=== PATIENT | female | born 1985 | race Caucasian/White ===

== ENCOUNTER 2016-07-07 06:31 | Inpatient (IN) | payer BC ==
[2016-07-07] MEDS ORDERED: Nalbuphine 10 MG/1 ML Vial IVPUSH PRN (06:48)
[2016-07-07] MEDS ORDERED: Sodium Chloride 0.9% 10 ML Syringe FLUSH PRN (06:48)
[2016-07-07] MEDS ORDERED: Misoprostol 200 MCG Tab PO PRN (06:48)
[2016-07-07] MEDS ORDERED: Butorphanol 1 MG/ML SDV IVPUSH PRN (06:48)
[2016-07-07] MEDS ORDERED: Water For Irrigation,Sterile 1,000 ML Container IRR PRN (06:48)
[2016-07-07] MEDS ORDERED: Carboprost Tromethamine 250 MCG/1 ML Amp IM PRN (06:48)
[2016-07-07] MEDS ORDERED: Lidocaine 1% 50 ML MDV INJECT PRN (06:48)
[2016-07-07] MEDS ORDERED: Methylergonovine 0.2 MG/1 ML Amp IM PRN (06:48)
[2016-07-07] MEDS ORDERED: Sodium Chloride 0.9% 2.5 ML Syringe FLUSH PRN (06:48)
[2016-07-07] MEDS ORDERED: Lidocaine 1% 50 ML MDV ONE (06:52)
[2016-07-07] MEDS ORDERED: Lactated Ringers 1,000 ML IV SCH (07:00)
[2016-07-07] MEDS ORDERED: Oxytocin/Lactated Ringers 30 UNIT/500 ML BAG IV SCH (07:00)
[2016-07-07] MEDS ORDERED: Acetaminophen 500 MG Tab PO PRN (08:31)
[2016-07-07] MEDS ORDERED: Docusate Sodium 100 MG Cap PO PRN (08:31)
[2016-07-07] MEDS ORDERED: oxyCODONE 5 MG Tab PO PRN (08:31)
[2016-07-07] MEDS ORDERED: Bisacodyl 10 MG Supp RECTAL PRN (08:31)
[2016-07-07] MEDS ORDERED: Lanolin 100% Cream 7 GM Tube TOP PRN (08:31)
[2016-07-07] MEDS ORDERED: Witch Hazel Medicated Pads 40/Jar TOP PRN (08:31)
[2016-07-07] MEDS ORDERED: Benzocaine/Menthol 20%-0.5% Spray 78 GM Cannister TOP PRN (08:31)
[2016-07-07] MEDS: Ibuprofen 800 MG Tab PO PRN ×2 (11:33→21:16)
--- NOTE | 2016-07-08 08:32 | PCM.PNPP ---
- General Info Date of Service: 07/08/16 Functional Status: Reports: pain controlled, tolerating diet, ambulating, urinating - Review of Systems General: Reports: No Symptoms HEENT: Reports: no symptoms Pulmonary: Reports: no symptoms Cardiovascular: Reports: No Symptoms Gastrointestinal: Reports: No symptoms, [place] Genitourinary: Reports: no symptoms Musculoskeletal: Reports: no symptoms Skin: Reports: no symptoms Neurological: Reports: No Symptoms Psychiatric: Reports: no symptoms - General Info Date of Service: 07/08/16 - Patient Data Vital Signs - most recent: Last Vital Signs Temp 36.6 C 07/08/16 04:00 Pulse 75 07/08/16 04:00 Resp 14 07/08/16 04:00 BP 99/60 07/08/16 04:00 Pulse Ox 97 07/08/16 04:00 Weight - most recent: 70.307 kg Lab Results - last 24 hrs: Laboratory Results - last 24 hr 07/07/16 07/07/16 07/07/16 Range/Units 08:26 08:26 08:26 WBC 16.69 H (4.0-11.0) K/uL RBC 4.23 L (4.30-5.90) M/uL Hgb 12.7 (12.0-16.0) g/dL Hct 37.7 (36.0-46.0) % MCV 89.1 (80.0-98.0) fL MCH 30.0 (27.0-32.0) pg MCHC 33.7 (31.0-37.0) g/dL RDW Std Deviation 45.0 (28.0-62.0) fl RDW Coeff of Vilma 14 (11.0-15.0) % Plt Count 155 (150-400) K/uL MPV 10.60 (7.40-12.00) fL Nucleated RBC % 0.1 /100WBC Nucleated RBCs # 0 K/uL Blood Type O NEGATIVE Antibody Screen NEGATIVE Rhogam Indicated NO, MOM+BABY RH NEG 07/08/16 Range/Units 06:00 WBC (4.0-11.0) K/uL RBC (4.30-5.90) M/uL Hgb 11.7 L (12.0-16.0) g/dL Hct 35.0 L (36.0-46.0) % MCV (80.0-98.0) fL MCH (27.0-32.0) pg MCHC (31.0-37.0) g/dL RDW Std Deviation (28.0-62.0) fl RDW Coeff of Vilma (11.0-15.0) % Plt Count (150-400) K/uL MPV (7.40-12.00) fL Nucleated RBC % /100WBC Nucleated RBCs # K/uL Blood Type Antibody Screen Rhogam Indicated Med Orders - Current: Current Medications Acetaminophen (Tylenol Extra Strength) 500 mg PO Q4H PRN PRN Reason: Pain Last Admin: 07/07/16 13:55 Dose: 500 mg Benzocaine/Menthol (Dermoplast Pain Relief 20%-0.5% [place]) 78 gm TOP ASDIRECTED PRN PRN Reason: Perineal Comfort Measure Bisacodyl (Dulcolax) 10 mg RECTAL .ONCE PRN PRN Reason: Constipation Butorphanol Tartrate (Stadol) 1 mg IVPUSH Q1H PRN PRN Reason: Pain Carboprost Tromethamine (Hemabate Ds) 250 mcg IM ASDIRECTED PRN PRN Reason: Post Hemorrhage Docusate Sodium (Colace) 100 mg PO BID PRN PRN Reason: Constipation Emollient Ointment (Lansinoh Hpa) 0 gm TOP ASDIRECTED PRN PRN Reason: Sore Nipples Lactated Ringer's (Ringers, Lactated) 1,000 mls @ 150 mls/hr IV ASDIRECTED MARK Ibuprofen (Motrin) 800 mg PO Q6H PRN PRN Reason: Pain Last Admin: 07/07/16 21:16 Dose: 800 mg Lidocaine HCl (Xylocaine 1%) 50 ml INJECT .ONCE PRN PRN Reason: Laceration repair Methylergonovine Maleate (Methergine) 0.2 mg IM ASDIRECTED PRN PRN Reason: Post Hemorrhage Misoprostol (Cytotec) 200 mcg PO .ONCE PRN PRN Reason: Post Hemorrhage Oxycodone HCl (Oxycodone) 5 mg PO Q2H PRN PRN Reason: Pain Sodium Chloride (Saline Flush) 10 ml FLUSH ASDIRECTED PRN PRN Reason: Keep Vein Open Sodium Chloride (Saline Flush) 2.5 ml FLUSH ASDIRECTED PRN PRN Reason: Keep Vein Open Sterile Water (Sterile Water For Irrigation) 1,000 ml IRR ASDIRECTED PRN PRN Reason: delivery Last Admin: 07/07/16 07:33 Dose: 1,000 ml Witch Stephanie (Tucks) 1 pad TOP ASDIRECTED PRN PRN Reason: comfort care Discontinued Medications Oxytocin/Lactated Ringer's (Pitocin In Lr 30 Units/500 Ml) 30 unit in 500 mls @ 2 mls/hr IV TITRATE MARK; 2 MUNITS/MIN PRN Reason: Protocol Stop: 07/08/16 06:59 Last Admin: 07/07/16 07:33 Dose: 500 munits/min, 500 mls/hr Lidocaine HCl (Xylocaine 1%) Confirm Administered Dose 50 ml .ROUTE .STK-MED ONE Stop: 07/07/16 06:53 Last Admin: 07/07/16 07:32 Dose: 50 ml Nalbuphine HCl (Nubain) 10 mg IVPUSH Q1H PRN PRN Reason: Pain (severe 7-10) Stop: 07/07/16 08:49 - Interaction Disposition, : in Room with Family Interaction: Holding Infant Feeding: Attempted ; Nursed Fair/Poor Support Person: - Exam General: alert, oriented Neck: supple Lungs: Clear to auscultation, Normal respiratory effort Cardiovascular: Regular Rate, Regular Rhythm Abdomen: bowel sounds present, soft, no tenderness Extremities: no calf tenderness Skin: warm, dry, intact Neurological: no new focal deficit Psy/Mental Status: alert, normal affect, normal mood - Problem List & Annotations (1) Vaginal delivery SNOMED Code(s): 063240909 Code(s): O80 - ENCOUNTER FOR FULL-TERM UNCOMPLICATED DELIVERY Status: Acute Current Visit: Yes - Problem List Review Problem List Initiated/Reviewed/Updated: Yes - My Orders Last 24 Hours: My Active Orders 07/07/16 08:31 Patient Status [ADT] Routine May Shower [RC] ASDIRECTED Up ad Shyanne [RC] ASDIRECTED Vital Signs [RC] PER UNIT ROUTINE Acetaminophen [Tylenol Extra Strength] 500 mg PO Q4H PRN Benzocaine/Menthol [Dermoplast Pain Relief 20%-0.5% [place]] 78 gm TOP ASDIRECTED PRN Bisacodyl [Dulcolax] 10 mg RECTAL .ONCE PRN Docusate Sodium [Colace] 100 mg PO BID PRN Ibuprofen [Motrin] 800 mg PO Q6H PRN Lanolin [Lansinoh HPA] See Dose Instructions TOP ASDIRECTED PRN Witch Stephanie [Tucks] 1 pad TOP ASDIRECTED PRN oxyCODONE 5 mg PO Q2H PRN Assess Lochia [WOMSER] Per Unit Routine Assess Uterine Involution [WOMSER] Per Unit Routine Breast Pump [WOMSER] Per Unit Routine Peripheral IV Discontinue [OM.PC] Routine 07/07/16 08:32 Ice Therapy [OM.PC] Per Unit Routine Perineal Care [OM.PC] Per Unit Routine Sitz Bath [OM.PC] Per Unit Routine 07/08/16 09:30 Ready for Discharge [RC] PER UNIT ROUTINE - Assessment Assessment:: PPD#1 S/p SAVD Doing well OOB voiding and ambulating without difficulty - Plan Plan:: Pelvic rest for 6wks Call for increased heavy bleeding of > 1pad per hr Call for temp. >100.4 x 2 Thromboembolic precautions given blues/depression precautions given
[2016-07-08 10:06] VITALS: BP 111/71
--- NOTE | 2016-07-09 06:08 | OR ---
SURGEON: Mayuri Lozoya DATE OF PROCEDURE: 07/07/2016 PREDELIVERY HISTORY: This is a 31-year-old G2, P1, presented to Labor and Delivery with complaints of painful uterine contractions. On initial exam, the patient was noted to be completely dilated and 0 station with a bulging bag of membranes. heart tracing was significant for category 1 status. The patient was lizzette every 2 to 3 minutes on her own. has been uncomplicated for patient. After receiving an IV lock, the patient did undergo amniotomy for copious clear fluid. The patient started maternal expulsive efforts shortly thereafter. PREOPERATIVE DIAGNOSES: 1. Intrauterine at 39 weeks and 1 day. 2. GBS negative. 3. Active labor. POSTOPERATIVE DIAGNOSES: 1. Intrauterine at 39 weeks and 1 day. 2. Delivered status. 3. Midline second-degree perineal laceration. PROCEDURE PERFORMED: 1. Spontaneous-assisted vaginal delivery. 2. Second-degree midline perineal laceration. ATTENDING PHYSICIAN: Dr. Mayuri Lozoya ANESTHESIA: Local. ESTIMATED BLOOD LOSS: 300 mL. FINDINGS: Viable female in vertex presentation with score of 9 and 9 at 1 and 5 minutes respectively and weight of 3470 g. Normal intact placenta with 3- vessel cord. Midline second-degree perineal laceration. SPECIMEN REMOVED: Placenta. CONDITION: Postoperatively, the patient and tolerated the procedure well. COMPLICATIONS: None known. DESCRIPTION OF PROCEDURE: This female, under no anesthesia, delivered a viable female , with score of 9 and 9 at 1 and 5 minutes respectively. Weight of 3470 g. Delivery was via spontaneous assisted vaginal delivery with in vertex presentation. Upon delivery of vertex, the neck was checked. There was no nuchal to be reduced, and with gentle downward traction, the anterior shoulder was delivered, followed by the body. The was bulb suctioned at delivery. At maternal request, the infant was placed directly on mom's abdomen and infant was very vigorous at the time of delivery and suctioned and at that time was placed on mom's abdomen. Once there were signs of placental separation, maternal fundal massage was completed and traction on the umbilical cord and a normal intact placenta with 3-vessel cord was delivered. Cord was doubly clamped and cut and was repositioned on mom's abdomen. Afterwards, the patient's vagina, perineum, and rectum were explored and patient had a midline second-degree perineal laceration secondary to the gush of blood and pass of large clots. IV bolus of Pitocin was given after it was discussed with the patient as the patient wanted minimal medications and intervention. The patient did allow IV Pitocin to be started. Afterwards 1% lidocaine plain was used to infiltrate the vaginal and perineal tissues for repair. The patient did have a history of a midline third-degree perineal laceration, but this was only a second-degree. It was discussed with patient that the bulbocavernosus muscles and the perineum would be reinforced and repaired as almost of a 3rd degree laceration secondary to re-traumatizing the laceration was not as intact. A clean examining glove was used to do a digital rectal exam, and there was no noted buttonholing and the actual rectal sphincter could be palpated though somewhat slightly attenuated. After infiltrating the perineal tissues with local anesthetic, a 3-0 Vicryl suture was used to reapproximate the vagina, just past the hymenal ring. Once past the hymenal ring, the suture was switched over to a 2-0 Polysorb suture to reapproximate the bulbocavernosus muscles. After reapproximation of the bulbar cavernosus muscles, the remainder of the laceration was repaired in the usual three layer fashion. Afterwards, the lower uterine segment vagina was cleared of all clots and debris. The patient was cleansed, pads were changed and the bed was returned to functioning status. The patient and tolerated the procedure well. Sponge, lap, needle, and instrument counts were correct. BRANDON / KYLIE /[id number] PREETI
== END 2016-07-08 11:00 | disposition home or self-care (01) | DRG 560 ==
LOC: MW.OBCHECK 06:31 → MW.OB 06:34 → MW.OBCHECK 06:49 → MW.OB 06:49 → OBSVTOIN 07:07
PROVIDERS: ADMIT Obstetrics & Gynecology; ATTEND Obstetrics & Gynecology
PROC: 10E0XZZ Delivery of Products of Conception, External Approach (ICD-10-PCS; principal; 2016-07-07)
PROC: 0KQM0ZZ Repair Perineum Muscle, Open Approach (ICD-10-PCS; 2016-07-07)
PROC: 10907ZC Drainage of Amniotic Fluid, Therapeutic from Products of Conception, Via Natural or Artificial Opening (ICD-10-PCS; 2016-07-07)
DX: O70.1 Second degree perineal laceration during delivery (principal); Z3A.39 39 weeks gestation of pregnancy; Z37.0 Single live birth
CPT/HCPCS: 36415; 59025; 85014; 85018; 85027; 86850; 86900; 86901; A9270-GY

== ENCOUNTER 2019-07-19 21:14 | Inpatient (IN) | payer SELFPAY ==
[2019-07-19] MEDS ORDERED: Nalbuphine 10 MG/1 ML Vial IVPUSH PRN (22:20)
[2019-07-19] MEDS ORDERED: Butorphanol 1 MG/ML SDV IVPUSH PRN (22:20)
[2019-07-19] MEDS ORDERED: Sodium Chloride 0.9% 10 ML SDV IV PRN (22:20)
[2019-07-19] MEDS ORDERED: Sodium Chloride 0.9% 2.5 ML Syringe FLUSH PRN (22:20)
[2019-07-19] MEDS ORDERED: Tranexamic Acid 1,000 MG in Sodium Chloride 0.9% 100 ML IV PRN (22:20)
[2019-07-19] MEDS ORDERED: Water For Irrigation,Sterile 1,000 ML Container IRR PRN (22:20)
[2019-07-19] MEDS ORDERED: Methylergonovine 0.2 MG/1 ML Amp IM PRN (22:20)
[2019-07-19] MEDS ORDERED: Lidocaine 1% 50 ML MDV INJECT PRN (22:20)
[2019-07-19] MEDS ORDERED: Carboprost Tromethamine 250 MCG/1 ML Amp IM PRN (22:20)
[2019-07-19] MEDS ORDERED: Misoprostol 200 MCG Tab PO PRN (22:20)
[2019-07-19] MEDS ORDERED: Sodium Chloride 0.9% 10 ML Syringe FLUSH PRN (22:20)
[2019-07-19] MEDS ORDERED: Lactated Ringers 1,000 ML IV SCH (22:30)
[2019-07-19] MEDS ORDERED: Oxytocin/0.9 % Sodium Chloride 30 UNIT/500 ML BAG IV SCH (22:30)
[2019-07-19] MEDS ORDERED: Ibuprofen 800 MG Tab PO PRN (23:53)
[2019-07-19] MEDS ORDERED: Ibuprofen 400 MG Tab PO PRN (23:53)
[2019-07-19] MEDS ORDERED: Benzocaine/Menthol 20%-0.5% Spray 78 GM Cannister TOP PRN (23:53)
[2019-07-19] MEDS ORDERED: Docusate Sodium 100 MG Cap PO PRN (23:53)
[2019-07-19] MEDS ORDERED: oxyCODONE 5 MG Tab PO PRN (23:53)
[2019-07-19] MEDS ORDERED: Witch Hazel Medicated Pads 40/Jar TOP PRN (23:53)
[2019-07-19] MEDS ORDERED: Lanolin 100% Cream 7 GM Tube TOP PRN (23:53)
[2019-07-19] MEDS ORDERED: Bisacodyl 10 MG Supp RECTAL PRN (23:53)
[2019-07-19] MEDS ORDERED: Acetaminophen 500 MG Tab PO PRN ×2 (23:53)
--- NOTE | 2019-07-19 23:53 | PCM.LDHP ---
L&D History of Present Illness - General Date of Service: 07/19/19 Admit Problem/Dx: Patient Status Order with Admit Dx/Problem 07/19/19 21:06 Patient Status [ADT] Routine 07/19/19 21:50 Patient Status [ADT] Routine Admission Diagnosis/Problem Admission Diagnosis/Problem Source of Information: Patient History Limitations: Reports: No Limitations - History of Present Illness Improves with: Reports: None Worsens with: Reports: None Associated Symptoms: Reports: N - Related Data Allergies/Adverse Reactions: Allergies Allergy/AdvReac Type Severity Reaction Status Date / Time No Known Allergies Allergy Verified 06/10/14 22:33 Home Medications: Home Meds oxyCODONE 5 mg PO Q4H PRN #20 tablet 06/11/14 [Rx] Past Medical History - Past Health History Medical/Surgical History: Denies Medical/Surgical History Social & Family History - Family History Family Medical History: Noncontributory - Caffeine Use Caffeine Use: Reports: None H&P Review of Systems - Review of Systems: Review Of Systems: See Below General: Reports: No Symptoms HEENT: Reports: No Symptoms Pulmonary: Reports: No Symptoms Cardiovascular: Reports: No Symptoms Gastrointestinal: Reports: No Symptoms Genitourinary: Reports: No Symptoms Musculoskeletal: Reports: No Symptoms Skin: Reports: No Symptoms Psychiatric: Reports: No Symptoms Neurological: Reports: No Symptoms Hematologic/Lymphatic: Reports: No Symptoms Immunologic: Reports: No Symptoms L&D Exam - Exam Exam: See Below - OB Specific Contraction Intensity: Moderate Movement: Active Heart Tones: Present Presentation: Vertex - Motta Score Motta Score Cervix Position: Anterior Motta Score Consistency: Soft Motta Score Effacement: >80% Motta Score Dilation: > 5 cm Motta Score 's Station: -2 Motta Score Total: 11 - Exam General: Alert, Oriented HEENT: PERRLA, Conjunctiva Clear, EACs Clear, EOMI, Hearing Intact, Mucosa Moist & [place], Nares Patent, Normal Nasal Septum, Posterior Pharynx Clear, TMs Clear Neck: Supple, Trachea Midline Lungs: Clear to Auscultation, Normal Respiratory Effort Cardiovascular: Regular Rate, Regular Rhythm GI/Abdominal Exam: Normal Bowel Sounds, Soft, Non-Tender, No Organomegaly, No Distention, No Abnormal Bruit, No Mass, Pelvis Stable Rectal Exam: Normal Exam, Normal Rectal Tone Genitourinary: Normal external exam, Normal bimanual exam, Normal speculum exam Back Exam: Normal Inspection, Full Range of Motion Extremities: Normal Inspection, Normal Range of Motion, Non-Tender, No Pedal Edema, Normal Capillary Refill Skin: Warm, Dry, Intact Neurological: Cranial Nerves Intact, Reflexes Equal Bilateral Psychiatric: Alert, Normal Affect, Normal Mood - Patient Data Lab Results Last 24 hrs: Laboratory Results - last 24 hr 07/19/19 07/19/19 07/19/19 Range/Units 21:10 22:12 22:12 WBC 15.61 H (4.0-11.0) K/uL RBC 4.10 L (4.30-5.90) M/uL Hgb 12.0 (12.0-16.0) g/dL Hct 35.3 L (36.0-46.0) % MCV 86.1 (80.0-98.0) fL MCH 29.3 (27.0-32.0) pg MCHC 34.0 (31.0-37.0) g/dL RDW Std Deviation 43.6 (28.0-62.0) fl RDW Coeff of Vilma 14 (11.0-15.0) % Plt Count 209 (150-400) K/uL MPV 10.60 (7.40-12.00) fL Nucleated RBC % 0.0 /100WBC Nucleated RBCs # 0 K/uL Membrane Rupture POSITIVE Blood Type O NEGATIVE Antibody Screen NEGATIVE Result Diagrams: 07/19/19 22:12 Problem List Initiated/Reviewed/Updated: Yes Orders Last 24hrs: Active Orders 24 hr Category Date Time Status Patient Status [ADT] Routine ADT 07/19/19 21:50 Active Heart Tones [RC] CONTINUOUS Care 07/19/19 22:20 Active Non Stress Test [RC] PER UNIT ROUTINE Care 07/19/19 21:16 Active May Shower [RC] ASDIRECTED Care 07/19/19 22:20 Active Notify Provider [RC] PRN Care 07/19/19 22:20 Active Peripheral IV Care [RC] PRN Care 07/19/19 22:20 Active Up ad Shyanne [RC] ASDIRECTED Care 07/19/19 21:16 Active Vaginal Exam [RC] Click to Edit Care 07/19/19 21:16 Active Vital Signs [RC] PER UNIT ROUTINE Care 07/19/19 21:16 Active RPR (SYPHILIS SERO) W/ RFLX [REF] Routine Lab 07/19/19 22:12 Received Butorphanol [Stadol] Med 07/19/19 22:20 Active 1 mg IVPUSH Q1H PRN Carboprost Tromethamine [Hemabate DS] Med 07/19/19 22:20 Active 250 mcg IM ASDIRECTED PRN Lactated Ringers [Ringers, Lactated] 1,000 ml Med 07/19/19 22:30 Active IV ASDIRECTED Lidocaine 1% [Xylocaine 1%] Med 07/19/19 22:20 Active 50 ml INJECT ONETIME PRN Methylergonovine [Methergine] Med 07/19/19 22:20 Active 0.2 mg IM ASDIRECTED PRN Nalbuphine [Nubain] Med 07/19/19 22:20 Active 10 mg IVPUSH Q1H PRN Oxytocin/0.9 % Sodium Chloride [Oxytocin 30 Unit/500 ML Med 07/19/19 22:30 Active -NS] 30 unit in 500 ml IV TITRATE Sodium Chloride 0.9% [Normal Saline] Med 07/19/19 22:20 Active 10 ml IV ASDIRECTED PRN Sodium Chloride 0.9% [Saline Flush] Med 07/19/19 22:20 Active 10 ml FLUSH ASDIRECTED PRN Sodium Chloride 0.9% [Saline Flush] Med 07/19/19 22:20 Active 2.5 ml FLUSH ASDIRECTED PRN Tranexamic Acid [Cyklokapron] 1,000 mg Med 07/19/19 22:20 Active Sodium Chloride 0.9% [Normal Saline] 100 ml IV ONETIME Water For Irrigation,Sterile [Sterile Water for Med 07/19/19 22:20 Active Irrigation] 1,000 ml IRR ASDIRECTED PRN miSOPROStoL [Cytotec] Med 07/19/19 22:20 Active 200 mcg PO ONETIME PRN Scalp Electrode [WOMSER] Per Unit Routine Oth 07/19/19 22:20 Ordered Peripheral IV Insertion Adult [OM.PC] Routine Oth 07/19/19 22:20 Ordered Resuscitation Status Routine Resus Stat 07/19/19 21:16 Ordered Medication Orders Butorphanol Tartrate (Stadol) 1 mg IVPUSH Q1H PRN PRN Reason: Pain Carboprost Tromethamine (Hemabate Ds) 250 mcg IM ASDIRECTED PRN PRN Reason: Post Hemorrhage Tranexamic Acid 1,000 mg/ (Sodium Chloride) 110 mls @ 660 mls/hr IV ONETIME PRN PRN Reason: Bleeding Lactated Ringer's (Ringers, Lactated) 1,000 mls @ 150 mls/hr IV ASDIRECTED MARK Oxytocin/Sodium Chloride (Oxytocin 30 Unit/500 Ml-Ns) 30 unit in 500 mls @ 999 mls/hr IV TITRATE MARK Lidocaine HCl (Xylocaine 1%) 50 ml INJECT ONETIME PRN PRN Reason: Laceration repair Last Admin: 07/19/19 23:43 Dose: 50 ml Methylergonovine Maleate (Methergine) 0.2 mg IM ASDIRECTED PRN PRN Reason: Post Hemorrhage Misoprostol (Cytotec) 200 mcg PO ONETIME PRN PRN Reason: Post Hemorrhage Nalbuphine HCl (Nubain) 10 mg IVPUSH Q1H PRN PRN Reason: Pain (severe 7-10) Sodium Chloride (Saline Flush) 10 ml FLUSH ASDIRECTED PRN PRN Reason: Keep Vein Open Sodium Chloride (Saline Flush) 2.5 ml FLUSH ASDIRECTED PRN PRN Reason: Keep Vein Open Sodium Chloride (Normal Saline) 10 ml IV ASDIRECTED PRN PRN Reason: IV Use Sterile Water (Sterile Water For Irrigation) 1,000 ml IRR ASDIRECTED PRN PRN Reason: delivery Last Admin: 07/19/19 22:49 Dose: 1,000 ml Assessment/Plan Comment:: IUP 39 wks+ in active labor.
--- NOTE | 2019-07-20 08:36 | PCM.PNPP ---
- General Info Date of Service: 07/20/19 Functional Status: Reports: Pain Controlled - Review of Systems General: Reports: No Symptoms HEENT: Reports: No Symptoms Pulmonary: Reports: No Symptoms Cardiovascular: Reports: No Symptoms Gastrointestinal: Reports: No Symptoms Genitourinary: Reports: No Symptoms Musculoskeletal: Reports: No Symptoms Skin: Reports: No Symptoms Neurological: Reports: No Symptoms Psychiatric: Reports: No Symptoms - General Info Date of Service: 07/20/19 - Patient Data Vital Signs - Most Recent: Last Vital Signs Temp 36.9 C 07/20/19 04:30 Pulse 78 07/20/19 04:30 Resp 16 07/20/19 04:30 BP 121/80 07/20/19 04:30 Pulse Ox 97 07/20/19 04:30 Weight - Most Recent: 75.296 kg Lab Results - Last 24 Hours: Laboratory Results - last 24 hr 07/19/19 07/19/19 07/19/19 Range/Units 21:10 22:12 22:12 WBC 15.61 H (4.0-11.0) K/uL RBC 4.10 L (4.30-5.90) M/uL Hgb 12.0 (12.0-16.0) g/dL Hct 35.3 L (36.0-46.0) % MCV 86.1 (80.0-98.0) fL MCH 29.3 (27.0-32.0) pg MCHC 34.0 (31.0-37.0) g/dL RDW Std Deviation 43.6 (28.0-62.0) fl RDW Coeff of Vilma 14 (11.0-15.0) % Plt Count 209 (150-400) K/uL MPV 10.60 (7.40-12.00) fL Nucleated RBC % 0.0 /100WBC Nucleated RBCs # 0 K/uL Membrane Rupture POSITIVE Blood Type O NEGATIVE Antibody Screen NEGATIVE Screen (NEGATIVE) RhIG Candidate? Rhogam Indicated 07/20/19 07/20/19 Range/Units 00:43 06:10 WBC (4.0-11.0) K/uL RBC (4.30-5.90) M/uL Hgb 11.6 L (12.0-16.0) g/dL Hct 34.4 L (36.0-46.0) % MCV (80.0-98.0) fL MCH (27.0-32.0) pg MCHC (31.0-37.0) g/dL RDW Std Deviation (28.0-62.0) fl RDW Coeff of Vilma (11.0-15.0) % Plt Count (150-400) K/uL MPV (7.40-12.00) fL Nucleated RBC % /100WBC Nucleated RBCs # K/uL Membrane Rupture Blood Type Antibody Screen Screen NEGATIVE (NEGATIVE) RhIG Candidate? YES Rhogam Indicated YES, BABY RH POS H Med Orders - Current: Current Medications Acetaminophen (Tylenol Extra Strength) 500 mg PO Q4H PRN PRN Reason: Pain Acetaminophen (Tylenol Extra Strength) 1,000 mg PO Q4H PRN PRN Reason: Pain Benzocaine/Menthol (Dermoplast Pain Relief 20%-0.5% [place]) 78 gm TOP ASDIRECTED PRN PRN Reason: Perineal Comfort Measure Bisacodyl (Dulcolax) 10 mg RECTAL ONETIME PRN PRN Reason: Constipation Carboprost Tromethamine (Hemabate Ds) 250 mcg IM ASDIRECTED PRN PRN Reason: Post Hemorrhage Docusate Sodium (Colace) 100 mg PO BID PRN PRN Reason: Constipation Emollient Ointment (Lansinoh Hpa) 0 gm TOP ASDIRECTED PRN PRN Reason: Sore Nipples Tranexamic Acid 1,000 mg/ (Sodium Chloride) 110 mls @ 660 mls/hr IV ONETIME PRN PRN Reason: Bleeding Ibuprofen (Motrin) 400 mg PO Q4H PRN PRN Reason: Pain Last Admin: 07/20/19 02:07 Dose: 400 mg Ibuprofen (Motrin) 800 mg PO Q6H PRN PRN Reason: Pain Methylergonovine Maleate (Methergine) 0.2 mg IM ASDIRECTED PRN PRN Reason: Post Hemorrhage Misoprostol (Cytotec) 200 mcg PO ONETIME PRN PRN Reason: Post Hemorrhage Oxycodone HCl (Oxycodone) 5 mg PO Q2H PRN PRN Reason: Pain Sodium Chloride (Saline Flush) 10 ml FLUSH ASDIRECTED PRN PRN Reason: Keep Vein Open Sodium Chloride (Saline Flush) 2.5 ml FLUSH ASDIRECTED PRN PRN Reason: Keep Vein Open Sodium Chloride (Normal Saline) 10 ml IV ASDIRECTED PRN PRN Reason: IV Use Witch Stephanie (Tucks) 1 pad TOP ASDIRECTED PRN PRN Reason: comfort care Last Admin: 07/20/19 01:02 Dose: 1 tub Discontinued Medications Butorphanol Tartrate (Stadol) 1 mg IVPUSH Q1H PRN PRN Reason: Pain Lactated Ringer's (Ringers, Lactated) 1,000 mls @ 150 mls/hr IV ASDIRECTED MARK Oxytocin/Sodium Chloride (Oxytocin 30 Unit/500 Ml-Ns) 30 unit in 500 mls @ 999 mls/hr IV TITRATE MARK Lidocaine HCl (Xylocaine 1%) 50 ml INJECT ONETIME PRN PRN Reason: Laceration repair Last Admin: 07/19/19 23:43 Dose: 50 ml Nalbuphine HCl (Nubain) 10 mg IVPUSH Q1H PRN PRN Reason: Pain (severe 7-10) Sterile Water (Sterile Water For Irrigation) 1,000 ml IRR ASDIRECTED PRN PRN Reason: delivery Last Admin: 07/19/19 22:49 Dose: 1,000 ml - Interaction Infant Disposition, : in Room with Family Infant Interaction: Holding Infant Feeding: Attempted ; Nursed Fair/Poor Support Person: - Recovery Exam Fundal Tone: Firm Fundal Level: 1 Fingerbreadths Below Umbilicus Fundal Placement: Midline Lochia Amount: Scant, Small Lochia Color: Rubra/Red Perineum Description: Other (see below) Other Perinuem Description: 2nd degree laceration. Episiotomy/Laceration: Approximated - Exam General: Alert, Oriented HEENT: Pupils Equal Neck: Supple Lungs: Clear to Auscultation, Normal Respiratory Effort Cardiovascular: Regular Rate, Regular Rhythm GI/Abdominal Exam: Normal Bowel Sounds, Soft, Non-Tender, No Organomegaly, No Distention, No Abnormal Bruit, No Mass, Pelvis Stable Extremities: Normal Inspection, Normal Range of Motion, Non-Tender, No Pedal Edema, Normal Capillary Refill Skin: Warm, Dry, Intact Wound/Incisions: Healing Well Neurological: No New Focal Deficit Psy/Mental Status: Alert, Normal Affect, Normal Mood - Problem List Review Problem List Initiated/Reviewed/Updated: Yes - My Orders Last 24 Hours: My Active Orders 07/19/19 21:16 Resuscitation Status Routine 07/19/19 22:12 RPR (SYPHILIS SERO) W/ RFLX [REF] Routine 07/19/19 22:20 Peripheral IV Care [RC] PRN Carboprost Tromethamine [Hemabate DS] 250 mcg IM ASDIRECTED PRN Methylergonovine [Methergine] 0.2 mg IM ASDIRECTED PRN Sodium Chloride 0.9% [Normal Saline] 10 ml IV ASDIRECTED PRN Sodium Chloride 0.9% [Saline Flush] 10 ml FLUSH ASDIRECTED PRN Sodium Chloride 0.9% [Saline Flush] 2.5 ml FLUSH ASDIRECTED PRN Tranexamic Acid [Cyklokapron] 1,000 mg Sodium Chloride 0.9% [Normal Saline] 100 ml IV ONETIME miSOPROStoL [Cytotec] 200 mcg PO ONETIME PRN Peripheral IV Insertion Adult [OM.PC] Routine 07/19/19 23:53 Patient Status [ADT] Routine May Shower [RC] ASDIRECTED Up ad Shyanne [RC] ASDIRECTED Vital Signs [RC] PER UNIT ROUTINE Acetaminophen [Tylenol Extra Strength] 1,000 mg PO Q4H PRN Acetaminophen [Tylenol Extra Strength] 500 mg PO Q4H PRN Benzocaine/Menthol [Dermoplast Pain Relief 20%-0.5% [place]] 78 gm TOP ASDIRECTED PRN Docusate Sodium [Colace] 100 mg PO BID PRN Ibuprofen [Motrin] 400 mg PO Q4H PRN Ibuprofen [Motrin] 800 mg PO Q6H PRN Lanolin [Lansinoh HPA] See Dose Instructions TOP ASDIRECTED PRN bisacodyL [Dulcolax] 10 mg RECTAL ONETIME PRN oxyCODONE 5 mg PO Q2H PRN witch Stephanie [Tucks] 1 pad TOP ASDIRECTED PRN Assess Lochia [WOMSER] Per Unit Routine Assess Uterine Involution [WOMSER] Per Unit Routine Peripheral IV Discontinue [OM.PC] Routine 07/20/19 00:43 SCREEN [BBK] Routine RH IMMUNE GLOBULIN [BBK] Routine RHOGAM, [RHIG WORKUP, ] [BBK] Routine 07/20/19 Breakfast Regular Diet [DIET] - Assessment Assessment:: Status post normal spontaneous vaginal delivery no complications patient is doing well she would be discharge in a.m. - Plan Plan:: IUP 39 wks+ in active labor.
--- NOTE | 2019-07-20 09:38 | OR ---
SURGEON: Cullen Diaz MD DATE OF PROCEDURE: 07/19/2019 Ms. Jansen is 34 years old. She is para 2-0-0-2. She is followed in our clinic primarily by our nurse editor magazine service. The patient had no issue prenatally. However, the patient is GBS positive, and she presented today to Labor and Delivery in active labor with spontaneous rupture of the membrane that was confirmed at the time of delivery. She was 5 cm, complete, vertex, and -2. The patient declined prophylactic antibiotic because of personal belief. The patient continued to progress. She became complete-complete, 0 to +1 station. When I arrived, she was complete-complete, vertex, 0 to +1 station, and occiput posterior. The patient pushed in excess of an hour. Her contraction was infrequent and not strong enough to rotate the baby, and after explaining this condition to the patient, the patient was consented for a vacuum rotation and extraction. Kiwi vacuum applied, and while the patient was pushing I was able to pull and rotate the baby to occiput anterior and then vaginal delivery accomplished without any problem. The fetus cried immediately. score and weight are not available at the time of the dictation. The placenta delivered spontaneous, complete, and intact. There was first-degree perineal laceration, repaired with 3-0 Vicryl after infiltrating the area with copious amount of xylocaine. Estimated blood loss was 250 to 300 mL. There was no active bleeding, so the patient has declined to use the Pitocin. heart rate was category 1 through the entire process of labor and delivery, and there was no complication in the labor and delivery. JENN / KYLIE /[id number]
--- NOTE | 2019-07-21 09:16 | PCM.DCSUM1 ---
Discharge Summary - Hospital Course Diagnosis: Stroke: No - Discharge Data Discharge Date: 07/21/19 Discharge Disposition: Home, Self-Care 01 Condition: Good - Referral to Home Health Primary Care Physician: PCP None - Patient Instructions Diet: Usual Diet as Tolerated Activity: As Tolerated Driving: Do Not Drive Showering/Bathing: May Shower - Discharge Plan Home Medications: Home Meds Cholecalciferol (Vitamin D3) [Vitamin D3] 5,000 unit PO DAILY 07/20/19 [History] Docosahexaenoic Acid [ Dha] 200 mg PO DAILY 07/20/19 [History] Lactobacillus Combo No.11 [Probiotic] 1 each PO DAILY 07/20/19 [History] Vitamin B Complex/Minerals [Sm Stress Formula+Zinc Tablet] 1 each PO DAILY 07/19 [History] Referrals: [facility] [Outside] Lashae Duff CNM [Mid-] - 08/31/19 9:45 am - Discharge Summary/Plan Comment DC Time >30 min.: Yes - General Info Date of Service: 07/21/19 Functional Status: Reports: Pain Controlled - Review of Systems General: Reports: No Symptoms HEENT: Reports: No Symptoms Pulmonary: Reports: No Symptoms Cardiovascular: Reports: No Symptoms Gastrointestinal: Reports: No Symptoms Genitourinary: Reports: No Symptoms Musculoskeletal: Reports: No Symptoms Skin: Reports: No Symptoms Neurological: Reports: No Symptoms Psychiatric: Reports: No Symptoms - Patient Data Vitals - Most Recent: Last Vital Signs Temp 36.0 C L 07/21/19 03:49 Pulse 86 07/21/19 03:49 Resp 16 07/21/19 03:49 BP 107/63 07/21/19 03:49 Pulse Ox 97 07/21/19 03:49 Weight - Most Recent: 75.296 kg Lab Results - Last 24 hrs: Laboratory Results - last 24 hr 07/20/19 Range/Units 00:43 Screen NEGATIVE (NEGATIVE) RhIG Candidate? YES Rhogam Indicated YES, BABY RH POS H Med Orders - Current: Current Medications Acetaminophen (Tylenol Extra Strength) 500 mg PO Q4H PRN PRN Reason: Pain Acetaminophen (Tylenol Extra Strength) 1,000 mg PO Q4H PRN PRN Reason: Pain Benzocaine/Menthol (Dermoplast Pain Relief 20%-0.5% [place]) 78 gm TOP ASDIRECTED PRN PRN Reason: Perineal Comfort Measure Bisacodyl (Dulcolax) 10 mg RECTAL ONETIME PRN PRN Reason: Constipation Carboprost Tromethamine (Hemabate Ds) 250 mcg IM ASDIRECTED PRN PRN Reason: Post Hemorrhage Docusate Sodium (Colace) 100 mg PO BID PRN PRN Reason: Constipation Emollient Ointment (Lansinoh Hpa) 0 gm TOP ASDIRECTED PRN PRN Reason: Sore Nipples Tranexamic Acid 1,000 mg/ (Sodium Chloride) 110 mls @ 660 mls/hr IV ONETIME PRN PRN Reason: Bleeding Ibuprofen (Motrin) 400 mg PO Q4H PRN PRN Reason: Pain Last Admin: 07/20/19 02:07 Dose: 400 mg Ibuprofen (Motrin) 800 mg PO Q6H PRN PRN Reason: Pain Last Admin: 07/20/19 14:09 Dose: 800 mg Methylergonovine Maleate (Methergine) 0.2 mg IM ASDIRECTED PRN PRN Reason: Post Hemorrhage Misoprostol (Cytotec) 200 mcg PO ONETIME PRN PRN Reason: Post Hemorrhage Oxycodone HCl (Oxycodone) 5 mg PO Q2H PRN PRN Reason: Pain Sodium Chloride (Saline Flush) 10 ml FLUSH ASDIRECTED PRN PRN Reason: Keep Vein Open Sodium Chloride (Saline Flush) 2.5 ml FLUSH ASDIRECTED PRN PRN Reason: Keep Vein Open Sodium Chloride (Normal Saline) 10 ml IV ASDIRECTED PRN PRN Reason: IV Use Witch Stephanie (Tucks) 1 pad TOP ASDIRECTED PRN PRN Reason: comfort care Last Admin: 07/20/19 01:02 Dose: 1 tub Discontinued Medications Butorphanol Tartrate (Stadol) 1 mg IVPUSH Q1H PRN PRN Reason: Pain Lactated Ringer's (Ringers, Lactated) 1,000 mls @ 150 mls/hr IV ASDIRECTED MARK Oxytocin/Sodium Chloride (Oxytocin 30 Unit/500 Ml-Ns) 30 unit in 500 mls @ 999 mls/hr IV TITRATE MARK Lidocaine HCl (Xylocaine 1%) 50 ml INJECT ONETIME PRN PRN Reason: Laceration repair Last Admin: 07/19/19 23:43 Dose: 50 ml Nalbuphine HCl (Nubain) 10 mg IVPUSH Q1H PRN PRN Reason: Pain (severe 7-10) Sterile Water (Sterile Water For Irrigation) 1,000 ml IRR ASDIRECTED PRN PRN Reason: delivery Last Admin: 07/19/19 22:49 Dose: 1,000 ml - Exam General: Reports: Alert, Oriented HEENT: Reports: Pupils Equal, Pupils Reactive, EOMI, Mucous Membr. Moist/[place]ck: Reports: Supple Lungs: Reports: Clear to Auscultation, Normal Respiratory Effort Cardiovascular: Reports: Regular Rate, Regular Rhythm GI/Abdominal Exam: Normal Bowel Sounds, Soft, Non-Tender, No Organomegaly, No Distention, No Abnormal Bruit, No Mass, Pelvis Stable (Female) Exam: Normal External Exam, Normal Speculum Exam, Normal Bimanual Exam Rectal (Female) Exam: Normal Exam, Normal Rectal Tone Back Exam: Reports: Normal Inspection, Full Range of Motion Extremities: Normal Inspection, Normal Range of Motion, Non-Tender, No Pedal Edema, Normal Capillary Refill Skin: Reports: Warm, Dry, Intact Wound/Incisions: Reports: Healing Well Neurological: Reports: No New Focal Deficit Psy/Mental Status: Reports: Alert, Normal Affect, Normal Mood
--- NOTE | 2019-07-22 10:19 | PCM.DCSUM1 ---
Discharge Summary - Hospital Course Free Text/Narrative:: Discharge home. Follow up in the clinic in 6 weeks for routine visit. Diagnosis: Stroke: No - Discharge Data Discharge Date: 07/22/19 Discharge Disposition: Home, Self-Care 01 Condition: Good - Referral to Home Health Primary Care Physician: PCP None - Patient Instructions Diet: Usual Diet as Tolerated Activity: As Tolerated Driving: Do Not Drive Showering/Bathing: May Shower - Discharge Plan *PRESCRIPTION DRUG MONITORING PROGRAM REVIEWED*: Not Applicable *COPY OF PRESCRIPTION DRUG MONITORING REPORT IN PATIENT NADIYA: Not Applicable Prescriptions/Med Rec: Ibuprofen [Motrin] 800 mg PO Q6H PRN #90 tablet PRN Reason: Pain Home Medications: Home Meds Cholecalciferol (Vitamin D3) [Vitamin D3] 5,000 unit PO DAILY 07/20/19 [History] Docosahexaenoic Acid [ Dha] 200 mg PO DAILY 07/20/19 [History] Lactobacillus Combo No.11 [Probiotic] 1 each PO DAILY 07/20/19 [History] Vitamin B Complex/Minerals [Sm Stress Formula+Zinc Tablet] 1 each PO DAILY 07/19 [History] Ibuprofen [Motrin] 800 mg PO Q6H PRN #90 tablet 07/22/19 [Rx] Referrals: [facility] [Outside] Lashae Duff CNM [Mid-] - 08/31/19 9:45 am - Discharge Summary/Plan Comment DC Time >30 min.: Yes - General Info Date of Service: 07/22/19 Admission Dx/Problem (Free Text: Patient Status Order with Admit Dx/Problem 07/19/19 21:06 Patient Status [ADT] Routine 07/19/19 21:50 Patient Status [ADT] Routine Admission Diagnosis/Problem Admission Diagnosis/Problem Functional Status: Reports: Pain Controlled - Review of Systems General: Reports: No Symptoms HEENT: Reports: No Symptoms Pulmonary: Reports: No Symptoms Cardiovascular: Reports: No Symptoms Gastrointestinal: Reports: No Symptoms Genitourinary: Reports: No Symptoms Musculoskeletal: Reports: No Symptoms Skin: Reports: No Symptoms Neurological: Reports: No Symptoms Psychiatric: Reports: No Symptoms - Patient Data Vitals - Most Recent: Last Vital Signs Temp 97.7 F 07/22/19 08:03 Pulse 85 07/22/19 04:00 Resp 14 07/22/19 08:03 BP 117/75 07/22/19 08:03 Pulse Ox 98 07/22/19 08:03 Weight - Most Recent: 166 lb Lab Results - Last 24 hrs: Laboratory Results - last 24 hr 07/19/19 Range/Units 22:12 RPR Non-Reac (Non-Reac) Med Orders - Current: Current Medications Acetaminophen (Tylenol Extra Strength) 500 mg PO Q4H PRN PRN Reason: Pain Acetaminophen (Tylenol Extra Strength) 1,000 mg PO Q4H PRN PRN Reason: Pain Benzocaine/Menthol (Dermoplast Pain Relief 20%-0.5% [place]) 78 gm TOP ASDIRECTED PRN PRN Reason: Perineal Comfort Measure Bisacodyl (Dulcolax) 10 mg RECTAL ONETIME PRN PRN Reason: Constipation Carboprost Tromethamine (Hemabate Ds) 250 mcg IM ASDIRECTED PRN PRN Reason: Post Hemorrhage Docusate Sodium (Colace) 100 mg PO BID PRN PRN Reason: Constipation Emollient Ointment (Lansinoh Hpa) 0 gm TOP ASDIRECTED PRN PRN Reason: Sore Nipples Tranexamic Acid 1,000 mg/ (Sodium Chloride) 110 mls @ 660 mls/hr IV ONETIME PRN PRN Reason: Bleeding Ibuprofen (Motrin) 400 mg PO Q4H PRN PRN Reason: Pain Last Admin: 07/20/19 02:07 Dose: 400 mg Ibuprofen (Motrin) 800 mg PO Q6H PRN PRN Reason: Pain Last Admin: 07/20/19 14:09 Dose: 800 mg Methylergonovine Maleate (Methergine) 0.2 mg IM ASDIRECTED PRN PRN Reason: Post Hemorrhage Misoprostol (Cytotec) 200 mcg PO ONETIME PRN PRN Reason: Post Hemorrhage Oxycodone HCl (Oxycodone) 5 mg PO Q2H PRN PRN Reason: Pain Sodium Chloride (Saline Flush) 10 ml FLUSH ASDIRECTED PRN PRN Reason: Keep Vein Open Sodium Chloride (Saline Flush) 2.5 ml FLUSH ASDIRECTED PRN PRN Reason: Keep Vein Open Sodium Chloride (Normal Saline) 10 ml IV ASDIRECTED PRN PRN Reason: IV Use Witch Stephanie (Tucks) 1 pad TOP ASDIRECTED PRN PRN Reason: comfort care Last Admin: 07/20/19 01:02 Dose: 1 tub Discontinued Medications Butorphanol Tartrate (Stadol) 1 mg IVPUSH Q1H PRN PRN Reason: Pain Lactated Ringer's (Ringers, Lactated) 1,000 mls @ 150 mls/hr IV ASDIRECTED MARK Oxytocin/Sodium Chloride (Oxytocin 30 Unit/500 Ml-Ns) 30 unit in 500 mls @ 999 mls/hr IV TITRATE MARK Lidocaine HCl (Xylocaine 1%) 50 ml INJECT ONETIME PRN PRN Reason: Laceration repair Last Admin: 07/19/19 23:43 Dose: 50 ml Nalbuphine HCl (Nubain) 10 mg IVPUSH Q1H PRN PRN Reason: Pain (severe 7-10) Sterile Water (Sterile Water For Irrigation) 1,000 ml IRR ASDIRECTED PRN PRN Reason: delivery Last Admin: 07/19/19 22:49 Dose: 1,000 ml - Exam General: Reports: Alert, Oriented, Cooperative, No Acute Distress Lungs: Reports: Normal Respiratory Effort GI/Abdominal Exam: Soft, Non-Tender (Female) Exam: Deferred Rectal (Female) Exam: Deferred Extremities: Normal Inspection, Normal Range of Motion, Non-Tender, Normal Capillary Refill Skin: Reports: Warm, Dry, Intact Neurological: Reports: No New Focal Deficit Psy/Mental Status: Reports: Alert, Normal Affect, Normal Mood
[2019-07-22 19:50] VITALS: BP 105/65; PULSE 87
== END 2019-07-22 20:13 | disposition home or self-care (01) | DRG 807 ==
LOC: MW.OB 21:14 → OBSVTOIN 23:35 → MW.OB 07-20 03:00
PROVIDERS: ADMIT Obstetrics & Gynecology; ATTEND Obstetrics & Gynecology
PROC: 10D07Z6 Extraction of Products of Conception, Vacuum, Via Natural or Artificial Opening (ICD-10-PCS; principal; 2019-07-19)
PROC: 0HQ9XZZ Repair Perineum Skin, External Approach (ICD-10-PCS; 2019-07-19)
PROC: 3E0234Z Introduction of Serum, Toxoid and Vaccine into Muscle, Percutaneous Approach (ICD-10-PCS; 2019-07-20)
DX: O99.824 Streptococcus B carrier state complicating childbirth (principal); Z37.0 Single live birth; O70.0 First degree perineal laceration during delivery; O26.893 Other specified pregnancy related conditions, third trimester; Z3A.39 39 weeks gestation of pregnancy; Z67.41 Type O blood, Rh negative
CPT/HCPCS: 36415; 59025; 59409; 84112; 85014; 85018; 85027; 85460; 86592; 86593; 86850; 86900; 86901; A9270-GY; J2001; J2792